=== PATIENT | female | born 1990 | race African-American/Black ===

== ENCOUNTER 2017-07-02 19:38 | Emergency (ER) | payer OTHER ==
[~2017-07-02] VITALS: Ht 162.6 cm; Wt 77.1 kg
[2017-07-02 19:52] VITALS: BP 135/89
--- NOTE | 2017-07-02 20:27 | Emergency Room Report ---
History of Present Illness General Chief Complaint: Flu Like Symptoms Source: Patient Present Illness HPI 26 YO Female Pt. presents to the ED c/o body-aches, nasal congestion, rhinorrhea , fevers, chills since yesterday. Pt. reports increased fatigue. reports hot flashes frequently, and decreased appetite. UTD with vaccinations except for flu. Pt. has been taking Tylenol for her symptoms. Pt. reports she is unable to breathe through either side of the nose. Denies sore throat, ear pain, high fevers, neck pain/stiffness, irritability, photophobia dehydration, N/V/D. Denies Cp, Palpitations, LOC, AMS, seizures, paresthesias, or changes in Hearing or vision, no Sudden severe [place]. Pt reports ill contact: son was recently hospitalized for influenza. Allergies: Coded Allergies: No Known Allergies (Unverified , 07/02/17) Patient History Past Medical History: see triage record Past Surgical History: none Pertinent Family History: none Last Menstrual Period: now Now: No Immunizations: UTD Reviewed Nursing Documentation: PMH: Agreed, PSxH: Agreed Nursing Documentation-PMH Past Medical History: No Stated History Review of Systems All Other Systems: negative except mentioned in HPI Physical Exam Vital Signs Date Time Temp Pulse Resp B/P (MAP) Pulse Ox O2 Delivery O2 Flow Rate FiO2 07/02/17 19:46 98.6 110 16 135/89 95 Room Air 98.6 Sp02 EP Interpretation: reviewed, normal General Appearance: no apparent distress, alert, GCS 15, non-toxic Head: normocephalic, atraumatic Eyes: bilateral eye normal inspection, bilateral eye PERRL ENT: hearing grossly normal, normal voice, TMs + canals normal, uvula midline, moist mucus membranes, nasal congestion Neck: full range of motion, no meningismus, no bony tend Respiratory: chest non-tender, lungs clear, normal breath sounds, no respiratory distress, no wheezing, speaking full sentences Cardiovascular #1: regular rate, rhythm Gastrointestinal: non tender, soft Musculoskeletal: back normal, gait/station normal, normal range of motion, non- tender Neurologic: alert, oriented x3, responsive, motor strength/tone normal, sensory intact, normal gait, speech normal, grossly normal Psychiatric: judgement/insight normal Skin: normal color, no rash, warm/dry, well hydrated Lymphatic: no adenopathy Medical Decision Making PA Attestation Dr. Salazar is my supervising Physician whom patient management has been discussed with. Diagnostic Impression: Primary Impression: Acute viral syndrome Additional Impression: Nasal congestion with rhinorrhea ER Course 26 YO Female Pt. presents to the ED c/o body-aches, nasal congestion, rhinorrhea , fevers, chills since yesterday. Pt. reports increased fatigue. reports hot flashes frequently, and decreased appetite. UTD with vaccinations except for flu. Pt. has been taking Tylenol for her symptoms. Pt. reports she is unable to breathe through either side of the nose. Denies sore throat, ear pain, high fevers, neck pain/stiffness, irritability, photophobia dehydration, N/V/D. Denies Cp, Palpitations, LOC, AMS, seizures, paresthesias, or changes in Hearing or vision, no Sudden severe [place]. Pt reports ill contact: son was recently hospitalized for influenza. Ddx considered but are not limited to URI, pneumonia, PE, strep pharyngitis, meningitis, influenza, OM/OE just to name a few. Vital signs: tachycardic, afebrile, the remaining VS are WNL H&PE are most consistent with Viral Syndrome suspicious for Influenza will treat clinically - no meningeal signs, Lungs are clear and oropharynx is not involved, no evidence of bacterial infection at this time. ORDERS: none required at this time, the diagnosis is clinical ED INTERVENTIONS: None required at this time. --PT. EDUCATION: --I discussed with this patient that I will be prescribing Tamiflu which is an antiviral. This medication is not always covered by insurance and is not always available at pharmacies. I educated patient that this medication has been shown to reduce symptoms by 1 day, and if unable to obtain there is no alternative, and to continue conservative treatment. DISCHARGE: At this time pt. is stable for d/c to home. Will provide printed patient care instructions, and any necessary prescriptions. Care plan and follow up instructions have been discussed with the patient prior to discharge. Last Vital Signs Date Time Temp Pulse Resp B/P (MAP) Pulse Ox O2 Delivery O2 Flow Rate FiO2 07/02/17 19:52 98.6 108 16 135/89 95 Room Air 98.6 Disposition: HOME, SELF-CARE Condition: Stable Scripts Oxymetazoline HCl (Afrin) 15 Ml [place] 2 SPRAYS NASAL TWICE A DAY, #15 SPRAY DO NOT USE FOR MORE THAN 3 DAYS. Prov: Emerald Figueroa 07/02/17 Oseltamivir Phosphate (Tamiflu) 75 Mg Capsule 75 MG ORAL TWICE A DAY for 5 Days, #10 CAP Prov: Emerald Figueroa 07/02/17 Naproxen* (NAPROXEN*) 500 Mg Tablet 500 MG ORAL TWICE A DAY for 10 Days, #20 TAB Prov: Emerald Figueroa 07/02/17 Departure Forms: Return to Work Return to Work Date: Jul 05, 2017 Work Restrictions: None Return to Full Activity: Jul 05, 2017 Patient Instructions: Upper Respiratory Infection, Adult, [id number] Additional Instructions: Take medications as directed. * Hydration is greatly encouraged* Follow up with a Primary Care Provider in 3-5 days, even if your symptoms have resolved. --Please review list of primary care clinics, if you do not already have a primary care provider Return sooner to ED if new symptoms occur, or current symptoms become worse. - Please note that this Emergency Department Report was dictated using [employer] crew technology software, occasionally this can lead to erroneous entry secondary to interpretation by the dictation equipment. Emerald Figueroa Jul 02, 2017 20:27
[2017-07-02] MEDS ORDERED: NAPROXEN500 M2 ORAL (20:29)
[2017-07-02] MEDS ORDERED: AFRIN NASAL SPR30 ML NASAL (20:29)
[2017-07-02] MEDS ORDERED: TAMIFLU75 MG ORAL (20:29)
[2017-07-02 20:37] VITALS: BP 135/89
== END 2017-07-03 01:17 | disposition home or self-care (01) ==
LOC: EMR 20:23
DX: B34.9 Viral infection, unspecified (principal); R09.81 Nasal congestion; J34.89 Other specified disorders of nose and nasal sinuses
CPT/HCPCS: 99284

== ENCOUNTER 2018-11-03 17:15 | Emergency (ER) | payer OTHER ==
[~2018-11-03] VITALS: Ht 162.6 cm; Wt 83.0 kg
[~2018-11-03 17:15] MED LIST: AFRIN NASAL SPR30 ML NASAL; NAPROXEN500 M2 ORAL; TAMIFLU75 MG ORAL
[2018-11-03 17:20] VITALS: BP 143/90
--- NOTE | 2018-11-03 17:20 | NUR ---
ED Nurse Note: Patient walked into ED c/o right lower abdoinal pain, that started yesterday, ptient staets that she was recently diagnosed with a UTI. she took meds and went away however the pain came back. patient rates her pain a 8/10 pain. patient is alert and oriented x4, ambulatory with a steady gait, VSS
[2018-11-03 17:46] LABS: APPEARANCE,URINE CLEAR; BILIRUBIN, URINE NEGATIVE (NEGATIVE); GLUCOSE, URINE (UA) NEGATIVE (NEGATIVE); KETONES,URINE NEGATIVE (NEGATIVE); LEUKOCYTE ESTERASE ,URINE 1+ (NEGATIVE); NITRITE,URINE NEGATIVE (NEGATIVE); PH,URINE 6 (4.5-8.0); PROTEIN,URINE NEGATIVE (NEGATIVE); UROBILINOGEN,URINE 1 MG/DL (0.0-1.0)
[2018-11-03 17:47] LABS: COLOR,URINE YELLOW
--- NOTE | 2018-11-03 19:24 | Emergency Room Report ---
History of Present Illness General Chief Complaint: Abdominal Pain Source: Patient Present Illness HPI 28-year-old female with no symptom past medical history here complaining of 1 day of painful urination and frequency. Patient reports that she was diagnosed with a UTI and given ceftriaxone 10 days ago however feels that her symptoms came back a day ago. Denies being sexually active. Last menstrual period was a week ago. Denies vaginal discharge. Denies fever and chills, nausea vomiting. Patient complains of suprapubic pain and also complains of a 10 out of 10 right inguinal area pain feeling a mass. Denies heavy lifting, history of ovarian cyst. Denies trauma to the area, chest pain, shortness of breath, palpitation, and all other associated symptoms. Has not taken medication for alleviation of her symptoms. Allergies: Coded Allergies: No Known Allergies (Unverified , 07/02/17) Patient History Past Medical History: see triage record Past Surgical History: unable to obtain Pertinent Family History: none Last Menstrual Period: 10/28/18 Now: No Immunizations: UTD Reviewed Nursing Documentation: PMH: Agreed; PSxH: Agreed Nursing Documentation-PMH Past Medical History: No Stated History Review of Systems All Other Systems: negative except mentioned in HPI Physical Exam Vital Signs Date Time Temp Pulse Resp B/P (MAP) Pulse Ox O2 Delivery O2 Flow Rate FiO2 11/03/18 17:20 98.1 105 16 143/90 (107) 99 Room Air Sp02 EP Interpretation: reviewed, normal General Appearance: normal inspection, well appearing, no apparent distress, alert Head: normocephalic, atraumatic Eyes: bilateral eye normal inspection, bilateral eye PERRL ENT: normal ENT inspection, hearing grossly normal, normal pharynx Neck: normal inspection, full range of motion, supple, thyroid normal Respiratory: normal inspection, lungs clear, no rhonchi, no wheezing Cardiovascular #1: normal inspection, normal peripheral pulses, regular rate, rhythm, no murmur Gastrointestinal: normal inspection, non tender, soft Genitourinary: no CVA tenderness, other - Mobile mass under the right inguinal , reducible Musculoskeletal: normal inspection, back normal, digits/nails normal Neurologic: normal inspection, alert, oriented x3, responsive Psychiatric: normal inspection, judgement/insight normal Skin: no rash Lymphatic: axilla node tender (R), inguinal node tender (R) Medical Decision Making PA Attestation All my diagnosis and treatment plans were reviewed ad discussed with my supervising physician Dr. Salazar Diagnostic Impression: Primary Impression: UTI (urinary tract infection) Additional Impression: Suprapubic mass ER Course 28-year-old female with no symptom past medical history here complaining of 1 day of painful urination and frequency. Patient reports that she was diagnosed with a UTI and given ceftriaxone 10 days ago however feels that her symptoms came back a day ago. Denies being sexually active. Last menstrual period was a week ago. Denies vaginal discharge. Denies fever and chills, nausea vomiting. Patient complains of suprapubic pain and also complains of a 10 out of 10 right inguinal area pain feeling a mass. Denies heavy lifting, history of ovarian cyst. Denies trauma to the area, chest pain, shortness of breath, palpitation, and all other associated symptoms. Has not taken medication for alleviation of her symptoms. Ddx considered but are not limited to: UTI, pylonephritis, urinary incontinence , prolapsed bladder, ovarian cyst, inguinal hernia, inguinal lymph node Vital signs: are WNL, pt. is afebrile H&PE are most consistent with: UTI, enlarged lymph node and inguinal area ORDERS: UA, urine test, pelvic ultrasound ED INTERVENTIONS: None required at this time. DISCHARGE: At this time pt. is stable for d/c to home. Will provide printed patient care instructions, and any necessary prescriptions. Care plan and follow up instructions have been discussed with the patient prior to discharge. Follow with the primary care provider for further referral to edi manager your symptoms most likely secondary to UTI being recurrent. Drink a lot of fluids return to emergency room if worsening symptoms Positive leukocytes and white blood cells in urine CT/MRI/US Diagnostic Results CT/MRI/US Diagnostic Results : Imaging Test Ordered: Pelvic ultrasound Impression Ovarian lymph node enlarged noted in right inguinal Last Vital Signs Date Time Temp Pulse Resp B/P (MAP) Pulse Ox O2 Delivery O2 Flow Rate FiO2 11/03/18 17:20 98.1 72 16 143/90 99 Room Air Disposition: HOME, SELF-CARE Condition: Stable Scripts Ibuprofen* (MOTRIN*) 600 Mg Tablet 600 MG ORAL Q8H PRN for For Pain, #30 TAB 0 Refills Prov: Rosario Mcdowell 7/16/19 Nitrofurantoin Monohyd/M-Cryst* (MACROBID 100 MG*) 100 Mg Capsule 100 MG ORAL EVERY 12 HOURS for 7 Days, #14 CAP Prov: Rosario Mcdowell 11/03/18 Referrals: NON PHYSICIAN (PCP) Patient Instructions: Urinary Tract Infection, [id number] Additional Instructions: There is inflammation of the lymph node in your suprapubic area which is benign and possibly secondary to urinary tract infection follow-up with your primary care provider if symptoms continue for further referrals and assessment. Rosario Mcdowell Nov 03, 2018 19:24
[2018-11-03] MEDS ORDERED: IBUPROFEN600 MG ORAL (19:25)
[2018-11-03] MEDS ORDERED: NITROFURANTOIN100 M2 ORAL (19:25)
[2018-11-03 19:35] VITALS: BP 135/83
--- NOTE | 2018-11-03 19:35 | NUR ---
ER DISCHARGE NOTE: Patient is cleared to be discharged per ERMD, pt is aox4, on room air, with stable vital signs. pt was given dc and prescription instructions, pt was able to verbalize understanding, pt id band removed without complications. pt is able to ambulate with steady gait. pt took all belongings.
--- NOTE | 2018-11-04 11:34 | Diagnostic Imaging Report ---
Indication: Pelvic and suprapubic pain. Palpable lump suprapubic region Technique: Grayscale and duplex Doppler imaging of the pelvis performed utilizing a transabdominal scan. Comparison: None Findings: Patient refused endovaginal scanning. In the suprapubic region, there is a 2.4 x 1.3 cm lymph node with a echogenic central hilus and the increased vascularity throughout the node. This is probably inflammatory. However, correlate clinically. The size, contour, and configuration of the uterus is within normal limits. The endometrium is uniformly echogenic and normal in thickness. The ovaries appear normal bilaterally with good dopplerable blood flow. There is no significant free fluid identified. IMPRESSION: 2.4 x 1.3 cm lymph node corresponding to the area of concern.
== END 2018-11-03 20:31 | disposition home or self-care (01) ==
LOC: EMR 17:40
DX: N39.0 Urinary tract infection, site not specified (principal); R19.09 Other intra-abdominal and pelvic swelling, mass and lump
CPT/HCPCS: 76856; 81001; 81025; 99284